=== PATIENT | female | born 1960 | race African-American/Black ===

== ENCOUNTER 2017-06-02 19:36 | Emergency (ER) | payer MEDICAID ==
[~2017-06-02] VITALS: Ht 160 cm; Wt 79.0 kg
[2017-06-02 19:56] VITALS: BP 139/57
== END 2017-06-03 00:08 | disposition left against medical advice (07) ==
LOC: ER 19:58
DX: R07.9 Chest pain, unspecified (principal); Z53.21 Procedure and treatment not carried out due to patient leaving prior to being seen by health care provider

== ENCOUNTER 2024-09-02 05:10 | Emergency (ER) | payer MEDICAID ==
[~2024-09-02] VITALS: Ht 165.1 cm; Wt 70.0 kg
[2024-09-02 05:22] VITALS: O2SAT 100
[2024-09-02 06:26] LABS: BASOPHILS % 0.4 % (0.0-2.0); EOSINOPHILS % 0.6 % (0.0-5.0); HEMATOCRIT. 35.6 % (36.0-48.0); HEMOGLOBIN. 11.8 g/dL (12.0-16.0); LYMPHOCYTES % 35.2 % (20.0-50.0); MEAN CORPUSCULAR HEMOGLOBIN 30.6 pg (28.0-32.0); MEAN CORPUSCULAR HGB CONC 33.3 g/dL (31.0-37.0); MEAN CORPUSCULAR VOLUME 91.9 fL (81.0-99.0); MEAN PLATELET VOLUME 8.3 fl (7.4-10.4); MONOCYTES % 5.3 % (2.0-8.0); NEUTROPHILS % 58.5 % (40.0-76.0); PLATELET 469 x1000/uL (130-400); RED BLOOD CELL COUNT 3.87 mill/uL (4.2-5.4); RED CELL DISTRIBUTION WIDTH 14.8 % (11.6-14.6); WHITE BLOOD COUNT 4.5 x1000/uL (4.5-11.0)
[2024-09-02 06:32] LABS: CHLORIDE 100 mEq/L (98-107); POTASSIUM 3.4 mEq/L (3.5-5.1); SODIUM 138 mEq/L (136-145)
[2024-09-02 06:33] LABS: CALCIUM 10.6 mg/dL (8.7-10.4); CARBON DIOXIDE 27 mEq/L (21-32)
[2024-09-02 06:38] LABS: CREATININE 0.7 mg/dL (0.6-1.0); GLUCOSE 123 mg/dL (70-105); UREA NITROGEN BLOOD 10 mg/dL (9-23)
[2024-09-02 06:39] LABS: TROPONIN I HIGH SENSITIVITY 4 ng/L (3.0-34)
[2024-09-02 06:40] LABS: ALANINE AMINOTRANSFERASE 14 IU/L (10-49); ALBUMIN 4.8 g/dL (3.2-4.8); ASPARTATE AMINOTRANSFERASE 16 IU/L (<34); BILIRUBIN TOTAL 0.3 mg/dL (0.1-1.0); PROTEIN TOTAL 8.3 g/dL (6.0-8.3)
[2024-09-02 06:50] LABS: BILIRUBIN DIRECT < 0.1 mg/dL (<=3.0)
[2024-09-02 06:58] LABS: CLARITY URINE CLEAR (CLEAR); COLOR URINE YELLOW (YELLOW); GLUCOSE URINE NEGATIVE (NEGATIVE); KETONES URINE NEGATIVE (NEGATIVE); LEUKOCYTE ESTERASE URINE NEGATIVE (NEGATIVE); NITRITE URINE NEGATIVE (NEGATIVE); OCCULT BLOOD URINE NEGATIVE (NEGATIVE); PH URINE 7.5 (4.5-8.0); PROTEIN URINE TRACE (NEGATIVE); SPECIFIC GRAVITY URINE 1.016 (1.005-1.030); UROBILINOGEN URINE 0.2 E.U./dL (0.2-1.0)
[2024-09-02] MEDS ORDERED: NICARDIPINE 50 MG in SODIUM CHLORIDE 0.9% 230 ML IV STA (07:21)
[2024-09-02 07:24] LABS: BACTERIA URINE NONE SEEN; RBC URINE 0-2 /hpf (0-2); SQUAMOUS EPITHELIAL CELL URINE FEW /lpf (RARE/1+); WBC URINE 0-2 /hpf (0-2)
[2024-09-02] MEDS: NICARDIPINE 40MG/200ML PREMIX 200 ML IV PRN (08:05)
[2024-09-02 08:34] LABS: TROPONIN I HIGH SENSITIVITY 8 ng/L (3.0-34)
[2024-09-02] MEDS: MORPHINE SULFATE 4 MG/ML INJ (FOR IV/IM USE) IV ONE (09:27)
[2024-09-02 10:00] VITALS: BP 179/66; PULSE 87; RESP 15; TEMP 36.78072; O2SAT 100
== END 2024-09-02 10:30 | disposition short-term general hospital (02) ==
LOC: ER 05:10
DX: I61.9 Nontraumatic intracerebral hemorrhage, unspecified (principal); I10 Essential (primary) hypertension; E78.00 Pure hypercholesterolemia, unspecified; Z90.89 Acquired absence of other organs
CPT/HCPCS: 80076; 80048; 81003; 85025; 84484; 36415; 71045; 70450; 93005; 96365; 96375; 99291; Z7610 ×4; J2270; J3490; J7050